=== PATIENT | male | born 1995 | race Two or more races ===

== ENCOUNTER 2016-09-06 19:52 | Emergency (ER) | payer OTHER ==
[~2016-09-06 19:52] MED LIST: ACETAMINOPHEN PO; MAGIC MOUTH WASH PO; PHENERGAN25 MG PO; ZITHROMAX PO; ZOFRAN PO
[2016-09-06] MEDS ORDERED: NO MEDICATIONS (19:59)
== END 2016-09-06 20:46 | disposition home or self-care (01) ==
LOC: SED 19:52
DX: H10.33 Unspecified acute conjunctivitis, bilateral (principal); J06.9 Acute upper respiratory infection, unspecified
CPT/HCPCS: 99283